=== PATIENT | male | born 1980 | race Caucasian/White ===

== ENCOUNTER 2017-12-25 14:34 | Emergency (ER) | payer OTHER ==
[~2017-12-25] VITALS: Ht 172.7 cm; Wt 76.2 kg
[~2017-12-25 14:34] MED LIST: AMOX TR-K CLV200 ML; CEFADROXIL1 G; MUPIROCIN0.9 GM; SEPTRA DS TABLE1 TAB PO; [UNRECOGNIZED DRUG - OTHER]
[2017-12-25] MEDS ORDERED: AMOX-CLAV 500-1 EACH (15:25)
== END 2017-12-25 16:56 | disposition home or self-care (01) ==
LOC: ER 14:34
DX: J35.01 Chronic tonsillitis (principal)